=== PATIENT | female | born 1970 | race Caucasian/White ===

== ENCOUNTER → 2024-03-23 08:03 | Outpatient (REF) | payer OTHER, BC, SELFPAY | LOC: WDC 08:03 | PROVIDERS: ATTENDING PHYSICIAN Obstetrics & Gynecology; FAMILY PHYSICIAN Family Medicine | DX: Z12.31 Encounter for screening mammogram for malignant neoplasm of breast (principal) | CPT/HCPCS: 77063; 77067 ==

== ENCOUNTER 2024-10-31 04:42 | Emergency (ER) | payer OTHER, BC, SELFPAY ==
[2024-10-31 04:46] VITALS: BP 164/104
[2024-10-31] MEDS: TYLENOL 1000 MG PO (05:28)
--- NOTE | 2024-10-31 05:30 | ED.GENMED ---
History of Present Illness
<Lucila Purdy PA-C - Last Filed: 10/31/24 23:01>
General
Chief Complaint: Back Pain
Source: patient
Exam Limitations: none
Time Seen by Provider: 10/31/24 04:56
Nursing documentation reviewed up to this point in time: agreed with
History of Present Illness
History of Present Illness:
54-year-old female with no past medical history presents to the emergency department today with concerns of mid back pain for the past 4 days. She reports that she was in [place] visiting her daughter and reports that she was lifting heavier weights
on her bed than she usually does and she felt the pain come on acutely. She feels as though the pain is worse on the left. The pain got better without intervention and she noticed that the pain returned after a long car ride. Patient reports the
pain improves with walking and is worse with lying flat and worse later in a day in the night. She has been taking ibuprofen 600 mg and alternating this with Tylenol as well as Flexeril intermittently. The last time she had Tylenol was 12 AM and
the last time she had ibuprofen was 3 AM. She reports that this has not improved her symptoms. She denies urinary or fecal incontinence, constipation, lower back pain, radicular symptoms, dysuria, shi hematuria, fevers or chills. She denies any
blunt trauma to the area. She has never had this pain before. Patient reports that at her ER visit in [place] a few days ago, they did note microscopic hematuria. She reports that at times the pain radiates to her abdomen. She denies any groin
pain. She denies any recent surgeries or procedures. She denies any chest pain or shortness of breath. She denies any genital paresthesias. She denies any difficulties ambulating. She denies any weakness in her lower extremities.
Review of Systems
<Lucila Purdy PA-C - Last Filed: 10/31/24 23:01>
Review of Systems
All Other Systems: ROS reviewed and negative except as documented in HPI and ROS
Phy Exam
<Lucila Purdy PA-C - Last Filed: 10/31/24 23:01>
Physical Exam
Physical Exam:
General: Patient is well appearing and in no acute distress; non-toxic
Skin: Warm and dry, no rashes or lesions
Head: Normocephalic, atraumatic
Eyes: Sclera non-icteric. EOMs intact.
Cardiac: Tachycardia
Peripheral Vascular: No lower extremity swelling or edema
Pulm: Normal respiratory effort
Abdomen: CVA tenderness noted bilaterally. No abdominal tenderness to palpation.
Musculoskeletal: No midline spinal tenderness, full range of motion of the thoracic and lumbar spine
Neuro: CN II-XII intact, no focal neurologic deficits. 5/5 strength in bilateral lower extremeties. Sensation intact.
Psychiatric: Appropriate mood and affect.
Course
<DANII Enriquez Filed: 10/31/24 23:01>
Orders/Labs/Results
Orders:
Orders
10/31/24 05:15
Acetaminophen [Tylenol] 1,000 mg PO NOW STA
diazePAM [Valium Injection] 2 mg IM NOW STA
10/31/24 05:20
CT Abd/pel Without Iv Or Oral Urgent
Comment:
Reason For Exam: left cva tenderness
10/31/24 05:39
Complete Blood Count/With Diff Urgent
Comprehensive Metabolic Panel Urgent
Urinalysis Reflex To Culture Urgent
Date Specimen was Collected: 10/31/24
Time Specimen was Collected: 05:30
Urine Microscopic Reflex Cult Urgent
Urine Culture Urgent
ANDREW Source: U
Specimen Description:
Date Specimen was Collected: 10/31/24
Time Specimen was Collected: 05:30
Abnormal Lab Results
10/31/24
05:39
Glucose 113 H mg/dl
(70-99)
Calcium 10.3 H mg/dl
(8.4-10.2)
Ur Occult Blood Reflex 2+ A
(Negative)
Leukocyte Esterase Rfl 1+ A
(Negative)
Urine RBC 3-6 A /HPF
(0-2)
10/31/24 05:39
10/31/24 05:39
Vital Signs
Initial and Last Documented VS:
Initial Vital Signs
Temp Pulse Resp BP Pulse Ox
98.9 F 118 20 164/104 95
10/31/24 04:46 10/31/24 04:46 10/31/24 04:46 10/31/24 04:46 10/31/24 04:46
Last Documented Vital Signs
Temp Pulse Resp BP Pulse Ox
98.9 F 95 16 153/75 98
10/31/24 04:46 10/31/24 05:46 10/31/24 05:46 10/31/24 05:46 10/31/24 05:46
<Janelle Jung PA-C - Last Filed: 10/31/24 06:35>
Orders/Labs/Results
Orders:
Orders
10/31/24 05:15
Acetaminophen [Tylenol] 1,000 mg PO NOW STA
diazePAM [Valium Injection] 2 mg IM NOW STA
10/31/24 05:20
CT Abd/pel Without Iv Or Oral Urgent
Comment:
Reason For Exam: left cva tenderness
10/31/24 05:39
Complete Blood Count/With Diff Urgent
Comprehensive Metabolic Panel Urgent
Urinalysis Reflex To Culture Urgent
Date Specimen was Collected: 10/31/24
Time Specimen was Collected: 05:30
Urine Microscopic Reflex Cult Urgent
Urine Culture Urgent
ANDREW Source: U
Specimen Description:
Date Specimen was Collected: 10/31/24
Time Specimen was Collected: 05:30
Abnormal Lab Results
10/31/24
05:39
Glucose 113 H mg/dl
(70-99)
Calcium 10.3 H mg/dl
(8.4-10.2)
Ur Occult Blood Reflex 2+ A
(Negative)
Leukocyte Esterase Rfl 1+ A
(Negative)
Urine RBC 3-6 A /HPF
(0-2)
10/31/24 05:39
10/31/24 05:39
Vital Signs
Initial and Last Documented VS:
Initial Vital Signs
Temp Pulse Resp BP Pulse Ox
98.9 F 118 20 164/104 95
10/31/24 04:46 10/31/24 04:46 10/31/24 04:46 10/31/24 04:46 10/31/24 04:46
Last Documented Vital Signs
Temp Pulse Resp BP Pulse Ox
98.9 F 95 16 153/75 98
10/31/24 04:46 10/31/24 05:46 10/31/24 05:46 10/31/24 05:46 10/31/24 05:46
Beverleylt;Lucila Purdy PA-C - Last Filed: 10/31/24 23:01>
MDM/Problems Addressed
Differential Diagnosis Includes:
ddx include thoracic sprain, lumbar sprain, herniated disc, nephrolithiasis, spinal stenosis, osteoarthritis
MDM/Problems Addressed:
54-year-old female with no history presents to the ER today with concerns of multiple days of back pain. Ibuprofen, Tylenol, and Flexeril have not been relieving her pain. She has no associated fevers or chills, no saddle paresthesias no urinary
or fecal incontinence. She has no associated urinary symptoms. On exam, she is well-appearing in no acute distress she has no focal neurologic deficits. Sensations intact. She has no midline spinal tenderness but does have CVA tenderness
bilaterally. Patient is concerned about potential for kidney stone considering her urinalysis a few days ago showed microscopic hematuria.
Patient's last dose of ibuprofen was at 3 AM her last dose of Tylenol was at 12 AM. Will give a gram of Tylenol now and give IM dose of Valium and reassess. Suspect thoracic sprain however considering acute worsening of symptoms despite
anti-inflammatories, microscopic hematuria, CVA tenderness, will obtain CT scan to rule out renal stone or other acute pathology. Case signed out to Kelsey Jung PA-C pending CT report
<Lucila Purdy PA-C - Last Filed: 10/31/24 23:01>
*Pulse Oximetry
SaO2: 95
Oxygen Mode of Delivery: Room air
<Janelle Jung PA-C - Last Filed: 10/31/24 06:35>
*Pulse Oximetry
Patient hypoxic: no
*Critical Care Note
Total Time (30-74mins, 75-104mins- exclusive of procedures): Not Applicable
<Janelle Jung PA-C - Last Filed: 10/31/24 06:35>
Update Note
Update Note:
Update 6:30AM: Received patient in signout pending CT scan. No acute abnormality on imaging or evidence of kidney stone. Likely musculoskeletal in nature. Feel stable for discharge with supportive care and return precautions. She will follow
with orthopedics. Prescription for steroids sent to pharmacy.
ED Attending Note
<Lucila Purdy PA-C - Last Filed: 10/31/24 23:01>
-
Portions of this chart may have been created with voice recognition software.� Occasional wrong word or��sound alike� substitutions may have occurred due to the inherent limitations of voice recognition software.
Discharge Plan
Departure
Patient Disposition: Home (Routine Discharge)
Date of Disposition: 10/31/24
Time of Disposition: 06:26
Patient with high blood pressure during this ER visit?: Yes
Condition: Good
Discharge Problem:
Strain of thoracic spine
Instructions: Muscle strain, BLOOD PRESSURE
Prescriptions:
New
prednisone 20 mg tablet
40 mg PO DAILY 5 Days Qty: 10 0RF
Referrals:
Misha Harper DO [Family Provider, Family Practice]
Kenrick Jensen MD [Active, Orthopedics] - Call in 1-3 days for appt
Activity Restrictions/Additional Instructions:
Prednisone has been sent to your pharmacy. Please take 40 mg once daily for 5 days. You can continue to take the Tylenol and Flexeril but please do not take NSAIDs with this.
Please continue to monitor your symptoms.
Please call the attached number to schedule a follow-up appointment with Ortho.
PLEASE RETURN TO THE ER SHOULD YOU DEVELOP URINARY OR FECAL INCONTINENCE, GENITAL NUMBNESS OR TINGLING, INABILITY TO AMBULATE, LOWER EXTREMITY WEAKNESS, FEVERS OR CHILLS, ABDOMINAL PAIN, CHEST PAIN, SHORTNESS OF BREATH, OR ANY OTHER SIGNS OR
SYMPTOMS WORRISOME TO YOU.
Interventions
Interventions:
*Risk Screen - Suicide Last Done: 10/31/24 04:46
*General Assessment Last Done: 10/31/24 04:46
*Neglect/Abuse Screening Last Done: 10/31/24 04:46
*ED- Fall Risk Assessment Last Done: 10/31/24 04:46
*ED COVID-19 Vaccine History Last Done: 10/31/24 04:46
*Nursing Disposition Last Done: 10/31/24 06:44
ED-Musculoskeletal Assessment Last Done: 10/31/24 05:47
Discharge Date and Time
Discharge Date/Time: 10/31/24 06:44
Print Language: FRENCH
[2024-10-31] MEDS: VALIUM INJECTION 2 MG IM (05:35)
[2024-10-31 05:41] VITALS: BMI 27.9
[2024-10-31 05:46] VITALS: BP 153/75
[2024-10-31 05:46] LABS: Urine Character Clear (Clear)
[2024-10-31 05:49] LABS: Hematocrit 40.0 % (37.0-47.0); Hemoglobin 13.5 g/dL (12.0-16.0); Mean Corp Hgb Conc. 33.8 g/dL (33.0-37.0); Mean Corpuscular Volume 91.3 fL (81.0-99.0); Nucleated Red Blood Cells % 0 %; Platelet Count 340 10^3/uL (130-400); Red Cell Dist. Width 13.3 % (11.5-14.5)
[2024-10-31 06:02] LABS: Urine White Cell 0-2 /HPF (0-5)
[2024-10-31 06:11] LABS: ALT (SGPT) 26 U/L (0-35); AST (SGOT) 25 U/L (14-36); Albumin 4.9 g/dl (3.5-5.0); Alkaline Phosphatase 85 U/L (38-126); Blood Urea Nitrogen 16 mg/dl (7-17); Calcium 10.3 mg/dl (8.4-10.2); Carbon Dioxide 26 mmol/L (22-30); Chloride 106 mmol/L (98-107); Estimated Creatinine Clearance 86 ml/min; Glucose 113 mg/dl (70-99); Potassium 4.4 mmol/L (3.5-5.1); Sodium 141 mmol/L (135-145); Total Protein 8.2 g/dl (6.3-8.2); eGFR > 60.00
== END 2024-10-31 06:44 | disposition home or self-care (01) ==
LOC: EMR 04:42
PROVIDERS: Physician Assistant; EMERGENCY PHYSICIAN Emergency Medicine; FAMILY PHYSICIAN Family Medicine
DX: S29.012A Strain of muscle and tendon of back wall of thorax, initial encounter (principal); X58.XXXA Exposure to other specified factors, initial encounter; R03.0 Elevated blood-pressure reading, without diagnosis of hypertension
CPT/HCPCS: 99284; 96372; 74176; 80053; 81003; 81015; 85025; 87086